=== PATIENT | male | born 1985 | race Caucasian/White ===

== ENCOUNTER 2017-04-24 15:32 | Emergency (ER) | payer OTHER ==
[~2017-04-24] VITALS: Ht 172.7 cm; Wt 97.5 kg
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
--- NOTE | 2017-04-24 16:09 | Diagnostic Imaging Report ---
AP view of the pelvis. INDICATION: Injury. FINDINGS: No fracture, dislocation or radiopaque foreign body. Joint alignment at the hip and the SI joints is satisfactory. IMPRESSION: Unremarkable exam. Dictated by: Dictated on workstation # [id number]
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
[2017-04-24 16:41] LABS: MEAN PLATELET VOLUME 10.9 FL (7.4-10.4); RED BLOOD COUNT 5.01 10^6/uL (4.35-5.85); RED CELL DISTRIBUTION WIDTH 12.8 % (10.0-14.5); WHITE BLOOD COUNT 7.3 10^3/uL (4.3-11.0)
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
[2017-04-24 16:46] LABS: BILIRUBIN,URINE NEGATIVE (NEGATIVE); KETONES,URINE NEGATIVE (NEGATIVE); LEUKOCYTE ESTERASE ,URINE NEGATIVE (NEGATIVE); NITRITE,URINE NEGATIVE (NEGATIVE); PH,URINE 5 (5-9); PROTEIN,URINE NEGATIVE (NEGATIVE); UROBILINOGEN,URINE NORMAL (NORMAL)
[2017-04-24 16:53] LABS: ALANINE AMINOTRANSFERASE 28 U/L (0-55); ALBUMIN 4.3 GM/DL (3.2-4.5); ALCOHOL < 10 MG/DL (<10); ANION GAP 7 MMOL/L (5-14); ASPARTATE AMINO TRANSFERASE 24 U/L (5-34); BILIRUBIN,DIRECT 0.2 MG/DL (0.0-0.3); BILIRUBIN,INDIRECT 0.4 MG/DL; BILIRUBIN,TOTAL 0.6 MG/DL (0.1-1.0); BLOOD UREA NITROGEN 14 MG/DL (7-18); BUN/CREATININE RATIO 17; CALCIUM 9.1 MG/DL (8.5-10.1); CARBON DIOXIDE 28 MMOL/L (21-32); CHLORIDE 105 MMOL/L (98-107); CREATININE SERUM 0.83 MG/DL (0.60-1.30); GFR ESTIMATED > 60; GLUCOSE 93 MG/DL (70-105); POTASSIUM 3.9 MMOL/L (3.6-5.0); SODIUM 140 MMOL/L (135-145); TOTAL PROTEIN 6.9 GM/DL (6.4-8.2)
[2017-04-24 16:54] LABS: WBC,URINE RARE /HPF
[2017-04-24 17:37] VITALS: BP 132/90
== END 2017-04-24 17:37 | disposition home or self-care (01) ==
LOC: ER 15:33
DX: S20.229A Contusion of unspecified back wall of thorax, initial encounter (principal); S80.01XA Contusion of right knee, initial encounter; V13.4XXA Pedal cycle driver injured in collision with car, pick-up truck or van in traffic accident, initial encounter
CPT/HCPCS: 36415; 71010; 72128; 72170; 80048; 80076; 80320; 81000; 85027; 99285

== ENCOUNTER 2018-10-25 22:40 | Emergency (ER) | payer BC, OTHER ==
[~2018-10-25] VITALS: Ht 172.7 cm; Wt 113.4 kg
--- OUTSIDE RECORDS SUMMARY | 2018-10-25 22:46 | XMS REPORT ---
Author Author Luciana Louis Organization [facility] Address [address] [place] [address] Care Team Providers Care Blanket Folder Name Role Phone Martinanand Luciana Unavailable PROBLEMS Type Condition ICD9-CM Code JGL48-RH Code Onset Dates Condition Status SNOMED Code Problem Flexural eczema L20.82 Active [id number] ALLERGIES No Known Allergies ENCOUNTERS Encounter Location Date Diagnosis [facility] [address] [place] [address] Oct, [facility] [address] [place] [address] Oct, Flexural eczema L20.82 and Xerosis cutis L85.3 IMMUNIZATIONS No Known Immunizations SOCIAL HISTORY Never Assessed 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 PLAN OF CARE Activity Details Follow Up 2 weeks Reason:Eczema VITAL SIGNS Height 67.5 in 2018-10-21 Weight 255 lbs 2018-10-21 BMI 39.34 kg/m2 2018-10-21 Blood pressure systolic 150 mm Hg 2018-10-21 Blood pressure diastolic 82 mm Hg 2018-10-21 MEDICATIONS Medication Instructions Dosage Frequency Start Date End Date Duration Status Fluocinonide Active Prednisone Active Betamethasone Dipropionate 0.05 % Externally Twice a day apply to affected areas on armsa and legs Oct, 14 days Active Triamcinolone Acetonide 0.1 % Externally Twice a day apply to affected areas on armpits Oct, 10 days Active RESULTS No Results PROCEDURES No Known procedures INSTRUCTIONS MEDICATIONS ADMINISTERED No Known Medications MEDICAL (GENERAL) HISTORY Type Description Date Surgical History Deviated septum repair
--- NOTE | 2018-10-25 22:48 | NUR ---
Doctor Alexis in to see the patient.
--- NOTE | 2018-10-25 22:58 | ED Back Pain ---
General Chief Complaint: Back Problems Stated Complaint: LOW BACK PAIN Source of Information: Patient Exam Limitations: No Limitations History of Present Illness Date Seen by Provider: Oct 25, 2018 Time Seen by Provider: 22:39 Initial Comments The patient presents to ER by private conveyance with chief complaint of last 2 days having some low back pain that has been responding to ibuprofen 800 mg and icy hot. Today however he was down visiting his family from [place], [place] and the ibuprofen and icy hot to be applied about an hour ago has not helped so he came up to the ER. He does not have muscle relaxants. 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 He says he does not remember any inciting event causing the injury. There is no radiation to this pain it's in his low back midline. Worse with movement. He has no dysuria, incontinence or urinary hesitancy. No saddle anesthesia, paresthesias numbness weakness or falls. No history of trauma. He does not have a history of significant back pain or back surgeries. No significant medical history nor does he take any medicines. Allergies and Home Medications Allergies Coded Allergies: No Known Drug Allergies (Unverified , 04/24/17) Home Medications No Active Prescriptions or Reported Meds Patient Home Medication List Home Medication List Reviewed: Yes Review of Systems Constitutional: No chills, No fever, No malaise EENTM: No ear pain, No eye pain Respiratory: No cough, No short of breath Cardiovascular: No chest pain, No edema Gastrointestinal: No abdominal pain, No nausea Past Nwnimzj-Utqlaw-Rlgfbf Hx Patient Social History Alcohol Use: Denies Use Recreational Drug Use: No Smoking Status: Never a Smoker Recent Foreign Travel: No Contact w/Someone Who Travel: No Recent Hopitalizations: No Immunizations Up To Date Tetanus Booster (TDap): Less than 5yrs Seasonal Allergies Seasonal Allergies: No Past Medical History Surgeries: Yes (facial surgery 2) Respiratory: No Cardiac: No Neurological: No Genitourinary: No Gastrointestinal: No Musculoskeletal: No Endocrine: No HEENT: No Cancer: No Family Medical History No Pertinent Family Hx Physical Exam Vital Signs Vital Signs - First Documented 10/25/18 22:40 Temp 97.2 Pulse 64 Resp 20 B/P (MAP) 151/81 (104) O2 Delivery Room Air Capillary Refill : Height, Weight, BMI Height: 5'8.00" Weight: 215lbs. oz. 97.261422be; 28.12 BMI Method:Stated General Appearance: WD/WN, Mild Distress Neck: Full Range of Motion, Normal Inspection Cardiovascular: Regular Rate, Rhythm, Normal Peripheral Pulses Respiratory: No Accessory Muscle Use, No Respiratory Distress Back: Normal Inspection, Muscle Spasm (mild bilateral), Vertebral Tenderness ( lumbar spine midline) Extremity: Normal Capillary Refill, Normal Inspection, Normal Range of Motion, Other (normal gait) Skin: Normal Color, Warm/Dry Progress/Results/Core Measures Results/Orders My Orders Orders - LETITIA ARNOLD Tramadol Tablet (Ultram Tablet) (10/25/18 23:00) Acetaminophen Tablet (Tylenol Tablet) (10/25/18 23:00) Orphenadrine Injection (Norflex Injectio (10/25/18 23:00) Vital Signs/I&O 10/25/18 22:40 Temp 97.2 Pulse 64 Resp 20 B/P (MAP) 151/81 (104) O2 Delivery Room Air Progress Progress Note : Time: 22:57 Progress Note Discussed conservative management of symptoms. He does not have any red flag signs. Plan to put him on a full prescription dose of NSAIDs in addition to Tylenol, topical creams and a back brace. Return to give him some cyclobenzaprine. Cyclobenzaprine and tramadol tonight to help ameliorate his symptoms so he can get some sleep. Departure Impression Primary Impression: Lumbago without sciatica Qualified Codes: M54.5 - Low back pain Disposition: 01 HOME, SELF-CARE Condition: Stable Departure-Patient Inst. Decision time for Depature: 23:00 Referrals: NO,LOCAL PHYSICIAN (PCP/Family) Primary Care Physician Patient Instructions: Low Back Pain (DC) Add. Discharge Instructions: Use the Tylenol 1000 mg every 8 hours as needed for back pain. Start taking Naprosyn 2 capsules twice a day on a scheduled basis. If you prefer ibuprofen you can use 4 tablets 3 times a day on a scheduled by basis for the next 2-4 weeks. Continue to use heat applications as well as topical creams such as Biofreeze, icy hot etc. Obtain a back brace and wear it on the days that are helpful. Expect results in the next week or 2 but if you're not seeing improvement and should follow up with your primary care physician and discuss the next steps. If you begin to have difficulty urinating, fevers, weakness and falls, numbness or tingling then you should report to your primary doctor for further evaluation and possible imaging. If you have spasms in your back cyclobenzaprine 1 tablet every 8 hours as necessary can be helpful. All discharge instructions reviewed with patient and/or family. Voiced understanding. Scripts Cyclobenzaprine HCl (Cyclobenzaprine HCl) 10 Mg Tablet 10 MG PO Q8H PRN for SPASMS, #15 TAB 0 Refills Prov: LETITIA ARNOLD 10/25/18 LETITIA ARNOLD Oct 25, 2018 22:58
[2018-10-25] MEDS ORDERED: CYCLOBENZAPRINE 10 MG (FLEXERIL) TAB PO STA (22:59)
[2018-10-25] MEDS ORDERED: ACETAMINOPHEN 500 MG TAB (TYLENOL) PO ONE (23:00)
[2018-10-25] MEDS ORDERED: ORPHENADRINE 60 MG/2 ML (NORFLEX) AMP IM ONE (23:00)
[2018-10-25] MEDS ORDERED: CYCL10TA9 PO (23:02)
[2018-10-25 23:06] VITALS: BP 151/81
== END 2018-10-25 23:06 | disposition home or self-care (01) ==
LOC: EDUNIT# 22:40 → ER FS 22:43
DX: M54.5 Low back pain (principal)
CPT/HCPCS: 99283